=== PATIENT | male | born 1965 | race Two or more races ===

== ENCOUNTER 2017-10-27 18:15 | Emergency (ER) | payer SELFPAY ==
[~2017-10-27] VITALS: Ht 177.8 cm; Wt 72.6 kg
[~2017-10-27 18:15] MED LIST: (None)20 M1 PO; ALBU90OI INH; ERYT250 PO; Prednisone20 MG PO
[2017-10-27] MEDS ORDERED: Prednisone20 MG PO (20:45)
[2017-10-27] MEDS ORDERED: Zithromax250 MG PO (20:45)
[2017-10-27] MEDS ORDERED: Flovent 110 MCG12 GM INH (20:45)
== END 2017-10-27 21:15 | disposition home or self-care (01) ==
LOC: ER 18:15
DX: J44.1 Chronic obstructive pulmonary disease with (acute) exacerbation (principal); Z88.2 Allergy status to sulfonamides; Z88.6 Allergy status to analgesic agent; Z87.891 Personal history of nicotine dependence
CPT/HCPCS: 71046; 99284

== ENCOUNTER 2018-09-28 13:36 | Emergency (ER) | payer SELFPAY ==
[~2018-09-28] VITALS: Ht 177.8 cm; Wt 68.0 kg
[~2018-09-28 13:36] MED LIST changes: +Flovent 110 MCG12 GM INH; +Zithromax250 MG PO
[2018-09-28] MEDS ORDERED: AMOX250 (14:32)
[2018-09-28 15:32] LABS: BASOPHILS ABSOLUTE AUTO 0.04 K/mm3 (0.00-0.23); BASOPHILS PERCENT AUTO 1 % (0-2); EOSINOPHILS ABSOLUTE AUTO 0.68 K/mm3 (0.00-0.68); EOSINOPHILS PERCENT AUTO 8 % (0-6); Hematocrit 50.3 % (37.0-53.0); Hemoglobin 17.5 g/dL (13.5-17.5); IMMATURE GRAN ABSOLUTE AUTO 0.02 K/mm3 (0.00-0.10); IMMATURE GRAN PERCENT AUTO 0 % (0-1); LYMPHOCYTES ABSOLUTE AUTO 1.84 K/mm3 (0.84-5.20); LYMPHOCYTES PERCENT AUTO 23 % (21-46); MONOCYTES ABSOLUTE AUTO 0.54 K/mm3 (0.16-1.47); MONOCYTES PERCENT AUTO 7 % (4-13); Mean Corpuscular HGB 31.4 pg (26.0-34.0); Mean Corpuscular HGB Conc 34.8 g/dL (31.5-36.5); Mean Corpuscular Volume 90 fL (80-100); Mean Platelet Volume 9.4 fL (9.1-12.4); NEUTROPHILS ABSOLUTE AUTO 5.03 K/mm3 (1.96-9.15); NEUTROPHILS PERCENT AUTO 62 % (41-73); Platelet Count 280 K/mm3 (150-400); RDW Coefficient Variation 12.7 % (11.7-14.2); Red Blood Cell Count 5.57 M/mm3 (4.30-5.90); White Blood Cell Count 8.15 K/mm3 (4.00-11.30)
[2018-09-28 15:38] LABS: Alanine Aminotransfer (ALT/SGP 21 U/L (12-78); Albumin/Globulin Ratio 1.1 (0.8-1.8); Alk Phos 100 U/L (50-136); Anion Gap 8 mmol/L (6-16); Aspartate Aminotrans (AST/SGOT 16 U/L (12-37); Bilirubin, Total 0.6 mg/dL (0.1-1.0); Blood Urea Nitrogen 11 mg/dL (8-24); Bun/Creatinine Ratio 13.6 (12.0-20.0); CO2, Blood 27 mmol/L (21-32); Chloride, Blood 108 mmol/L (98-108); Creatinine, Blood 0.81 mg/dL (0.60-1.20); Globulin, Blood 3.5 g/dL (2.2-4.0); Glomerular Filtration Rate >60 (60-); Glucose, Blood 107 mg/dL (70-99); Potassium, Blood 3.8 mmol/L (3.5-5.5); Sodium, Blood 143 mmol/L (136-145); Total Protein, Blood 7.5 g/dL (6.4-8.2)
[2018-09-28] MEDS ORDERED: PRED20 PO (15:38)
[2018-09-28] MEDS ORDERED: MONT10T PO (16:10)
[2018-09-28] MEDS ORDERED: ALBU90OI INH (16:10)
[2018-09-28] MEDS ORDERED: Zithromax250 MG PO (16:28)
== END 2018-09-28 16:25 | disposition home or self-care (01) ==
LOC: ER 13:36
PROVIDERS: Physician Assistant
DX: J44.1 Chronic obstructive pulmonary disease with (acute) exacerbation (principal); Z88.2 Allergy status to sulfonamides; Z88.8 Allergy status to other drugs, medicaments and biological substances; I10 Essential (primary) hypertension; F17.210 Nicotine dependence, cigarettes, uncomplicated
CPT/HCPCS: 36415; 71046; 80053; 85025; 96374; 99284-25; J2930

== ENCOUNTER 2018-09-28 21:47 | Inpatient (IN) | payer SELFPAY ==
[~2018-09-28] VITALS: Ht 198.1 cm; Wt 127.0 kg
[~2018-09-28 21:47] MED LIST changes: +AMOX250; +MONT10T PO; +PRED20 PO
[2018-09-29 06:04] LABS: Hematocrit 45.1 % (37.0-53.0); Hemoglobin 15.9 g/dL (13.5-17.5); Mean Corpuscular HGB 31.8 pg (26.0-34.0); Mean Corpuscular HGB Conc 35.3 g/dL (31.5-36.5); Mean Corpuscular Volume 90 fL (80-100); Mean Platelet Volume 9.5 fL (9.1-12.4); Platelet Count 273 K/mm3 (150-400); RDW Standard Deviation 42.5 fL (35.1-46.3); White Blood Cell Count 13.36 K/mm3 (4.00-11.30)
[2018-09-29 06:37] LABS: Alanine Aminotransfer (ALT/SGP 18 U/L (12-78); Albumin, Blood 3.7 g/dL (3.4-5.0); Albumin/Globulin Ratio 1.1 (0.8-1.8); Alk Phos 93 U/L (50-136); Anion Gap 10 mmol/L (6-16); Aspartate Aminotrans (AST/SGOT 12 U/L (12-37); Bilirubin, Total 0.5 mg/dL (0.1-1.0); Blood Urea Nitrogen 15 mg/dL (8-24); Bun/Creatinine Ratio 16.9 (12.0-20.0); CO2, Blood 23 mmol/L (21-32); Chloride, Blood 108 mmol/L (98-108); Creatinine, Blood 0.89 mg/dL (0.60-1.20); Globulin, Blood 3.4 g/dL (2.2-4.0); Glomerular Filtration Rate >60 (60-); Glucose, Blood 161 mg/dL (70-99); Potassium, Blood 3.5 mmol/L (3.5-5.5); Sodium, Blood 141 mmol/L (136-145); Total Protein, Blood 7.1 g/dL (6.4-8.2)
--- NOTE | 2018-09-29 08:55 | NUR ---
ADMIT TO 210, VISIBLY DYSPEIC WITH EXERTION. SATS MAINTAIN ABOVE 92% PATIENT WITH HX OF UNTREATED HTN. DISCUSSED NEED TO FOLLOW UP AND FOLLOW THROUGH WITH PRESCRIBED TREATMENTS.
[2018-09-29 12:03] LABS: Adenovirus Not Detected (NOT DETECT); Bordetella pertussis Not Detected (NOT DETECT); Chlamydophila pneumoniae Not Detected (NOT DETECT); Coronavirus 229E Not Detected (NOT DETECT); Coronavirus HKU1 Not Detected (NOT DETECT); Coronavirus NL63 Not Detected (NOT DETECT); Coronavirus OC43 Not Detected (NOT DETECT); Human Metapneumovirus Not Detected (NOT DETECT); Human Rhinovirus/Enterovirus Not Detected (NOT DETECT); Influenza A Not Detected (NOT DETECT); Influenza A/2009-H1 Not Detected (NOT DETECT); Influenza A/H1 Not Detected (NOT DETECT); Influenza A/H3 Not Detected (NOT DETECT); Influenza B Not Detected (NOT DETECT); Mycoplasma pneumoniae Not Detected (NOT DETECT); Parainfluenza Virus 1 Not Detected (NOT DETECT); Parainfluenza Virus 2 Not Detected (NOT DETECT); Parainfluenza Virus 3 Not Detected (NOT DETECT); Parainfluenza Virus 4 Not Detected (NOT DETECT); Respiratory Syncytial Virus Not Detected (NOT DETECT)
--- NOTE | 2018-09-29 12:50 | NUR ---
CARE TRANSFERRED TO CAPRICE ALLEN RN
--- NOTE | 2018-09-29 18:30 | NUR ---
SHIFT SUMMARY PT HAS DONE WELL TODAY. LUNGS CONTINUE TO BE COURSE WITH NONPRODUCTIVE COUGH. PT STATES CHEST CONGESTION IS UNCHANGED.
--- NOTE | 2018-09-29 19:52 | NUR ---
TELE OFF BRIEFLY FOR SHOWER
--- NOTE | 2018-09-30 05:58 | NUR ---
SHIFT SUMMARY PT ADMITTED FOR ACUTE EXACERBATION OF REACTIVE AIRWAY DISEASE. HE HAD EXPIRATORY AND INSPIRATORY WHEEZES T/O THE NIGHT, BREATHING TX PER RT. TELE WAS SINUS TACH T/O THE NIGHT, RAN 100-110 THE MAJORITY OF THE NIGHT WITH A SPIKE UP IN THE 130S-150S WHILE PT HAD SOME RESPIRATORY DISTRESS AROUND 0300 WHERE O2 SATS DIPPED TO 86% AND CAME BACK UP TO 90-91% AND WHICH RESOLVED WITH A BREATHING TX AND REQUIRED NO SUPPLEMENTAL O2. PT IS A&O, INDEP IN THE ROOM. WILL CTM UNTIL PASS TO NEXT SHIFT.
--- NOTE | 2018-09-30 11:47 | NUR ---
Met pt. sitting up on his bed and relaxed, he reports of little imporvement, encouraged pt. and offered some prayers.
--- NOTE | 2018-09-30 12:15 | NUR ---
PT PERMISSION PATIENT GAVE PERMISSION FOR JAYLA MENA TO PROVIDE CARE ON [phone] ON 10/01/18.
[2018-09-30 13:36] LABS: Magnesium, Blood 2.2 mg/dL (1.6-2.4)
[2018-09-30 13:38] LABS: Thyroid Stimulating Hormone 0.629 uIU/mL (0.360-4.800)
--- NOTE | 2018-09-30 17:28 | NUR ---
SHIFT SUMMARY PT HAS DONE WELL TODAY BUT UNABLE TO HAVE PRODUCTIVE COUGH TO COLLECT SPUTUM. UP MOVING AROUND IN ROOM WITH IMPROVEMENT OF BREATHING.
--- NOTE | 2018-10-01 04:17 | NUR ---
CONTINUES TO IMPROVE, ABLE TO AMBULATE IN ROOM WITHOUT SOB ON ROOM AIR. DENIES PAIN, DISCOMFORT, OR FURTHER NEEDS AT THIS TIME. SAFETY MEASURES IN PLACE. WILL GIVE HAND OFF TO ONCOMING SHIFT USING SBAR DURING BEDSIDE REPORT.
[2018-10-01 05:13] LABS: BASOPHILS ABSOLUTE AUTO 0.03 K/mm3 (0.00-0.23); BASOPHILS PERCENT AUTO 0 % (0-2); EOSINOPHILS PERCENT AUTO 0 % (0-6); Hematocrit 42.1 % (37.0-53.0); Hemoglobin 14.2 g/dL (13.5-17.5); IMMATURE GRAN ABSOLUTE AUTO 0.22 K/mm3 (0.00-0.10); IMMATURE GRAN PERCENT AUTO 1 % (0-1); LYMPHOCYTES ABSOLUTE AUTO 0.85 K/mm3 (0.84-5.20); LYMPHOCYTES PERCENT AUTO 5 % (21-46); MONOCYTES ABSOLUTE AUTO 0.48 K/mm3 (0.16-1.47); MONOCYTES PERCENT AUTO 3 % (4-13); Mean Corpuscular HGB Conc 33.7 g/dL (31.5-36.5); Mean Corpuscular Volume 95 fL (80-100); Mean Platelet Volume 9.4 fL (9.1-12.4); NEUTROPHILS ABSOLUTE AUTO 14.74 K/mm3 (1.96-9.15); NEUTROPHILS PERCENT AUTO 90 % (41-73); Platelet Count 235 K/mm3 (150-400); RDW Coefficient Variation 13.2 % (11.7-14.2); RDW Standard Deviation 46.4 fL (35.1-46.3); Red Blood Cell Count 4.44 M/mm3 (4.30-5.90); White Blood Cell Count 16.32 K/mm3 (4.00-11.30)
[2018-10-01 05:50] LABS: Alanine Aminotransfer (ALT/SGP 22 U/L (12-78); Albumin, Blood 3.4 g/dL (3.4-5.0); Albumin/Globulin Ratio 1.1 (0.8-1.8); Alk Phos 66 U/L (50-136); Anion Gap 6 mmol/L (6-16); Aspartate Aminotrans (AST/SGOT 10 U/L (12-37); Bilirubin, Total 0.3 mg/dL (0.1-1.0); Blood Urea Nitrogen 13 mg/dL (8-24); Bun/Creatinine Ratio 18.1 (12.0-20.0); CO2, Blood 30 mmol/L (21-32); Calcium, Blood 8.5 mg/dL (8.5-10.1); Chloride, Blood 106 mmol/L (98-108); Creatinine, Blood 0.72 mg/dL (0.60-1.20); Globulin, Blood 3.1 g/dL (2.2-4.0); Glomerular Filtration Rate >60 (60-); Glucose, Blood 148 mg/dL (70-99); Potassium, Blood 4.1 mmol/L (3.5-5.5); Sodium, Blood 142 mmol/L (136-145); Total Protein, Blood 6.5 g/dL (6.4-8.2)
--- NOTE | 2018-10-01 13:24 | NUR ---
Patient gave student permission on 09/30/18 to participate in care on the day of 10/01/18.
--- NOTE | 2018-10-01 14:02 | NUR ---
Met pt in bed resting and watching the T.V. pt. reports doing much better encouragedn and offered prayer,
[2018-10-02 04:27] LABS: BASOPHILS ABSOLUTE AUTO 0.04 K/mm3 (0.00-0.23); BASOPHILS PERCENT AUTO 0 % (0-2); EOSINOPHILS ABSOLUTE AUTO 0.13 K/mm3 (0.00-0.68); EOSINOPHILS PERCENT AUTO 1 % (0-6); Hematocrit 42.1 % (37.0-53.0); Hemoglobin 14.3 g/dL (13.5-17.5); IMMATURE GRAN ABSOLUTE AUTO 0.28 K/mm3 (0.00-0.10); IMMATURE GRAN PERCENT AUTO 2 % (0-1); LYMPHOCYTES ABSOLUTE AUTO 2.42 K/mm3 (0.84-5.20); LYMPHOCYTES PERCENT AUTO 19 % (21-46); MONOCYTES ABSOLUTE AUTO 0.91 K/mm3 (0.16-1.47); MONOCYTES PERCENT AUTO 7 % (4-13); Mean Corpuscular HGB 31.8 pg (26.0-34.0); Mean Corpuscular Volume 94 fL (80-100); Mean Platelet Volume 9.4 fL (9.1-12.4); NEUTROPHILS ABSOLUTE AUTO 9.28 K/mm3 (1.96-9.15); NEUTROPHILS PERCENT AUTO 71 % (41-73); NRBC ABSOLUTE 0.04 K/mm3 (0.00-0.02); NRBC Auto 0.3 /100 WBC (0.0-0.2); Platelet Count 215 K/mm3 (150-400); RDW Coefficient Variation 13.2 % (11.7-14.2); RDW Standard Deviation 45.1 fL (35.1-46.3); Red Blood Cell Count 4.49 M/mm3 (4.30-5.90); White Blood Cell Count 13.06 K/mm3 (4.00-11.30)
[2018-10-02 04:46] LABS: Alanine Aminotransfer (ALT/SGP 25 U/L (12-78); Albumin, Blood 3.2 g/dL (3.4-5.0); Albumin/Globulin Ratio 1.2 (0.8-1.8); Alk Phos 75 U/L (50-136); Anion Gap 4 mmol/L (6-16); Aspartate Aminotrans (AST/SGOT 18 U/L (12-37); Bilirubin, Total 0.5 mg/dL (0.1-1.0); Blood Urea Nitrogen 15 mg/dL (8-24); Bun/Creatinine Ratio 17.2 (12.0-20.0); CO2, Blood 32 mmol/L (21-32); Calcium, Blood 8.1 mg/dL (8.5-10.1); Chloride, Blood 106 mmol/L (98-108); Creatinine, Blood 0.87 mg/dL (0.60-1.20); Globulin, Blood 2.7 g/dL (2.2-4.0); Glomerular Filtration Rate >60 (60-); Glucose, Blood 91 mg/dL (70-99); Potassium, Blood 3.6 mmol/L (3.5-5.5); Sodium, Blood 142 mmol/L (136-145); Total Protein, Blood 5.9 g/dL (6.4-8.2)
--- NOTE | 2018-10-02 05:47 | NUR ---
MAINTAINING CURRENT STATUS, ABLE TO AMBULATE IN ROOM WITHOUT SOB ON ROOM AIR. HAS HAD INCREASED WHEEZING AND MUCUS PRODUCTION, REQUIRED AN PRN BREATHING TREATMENT. SOME TEACHING COMPLETED WITH EMPHASEMA DISEASE PROCESS, VOICES UNDERSTANDING. DENIES PAIN, DISCOMFORT, OR FURTHER NEEDS AT THIS TIME. SAFETY MEASURES IN PLACE. WILL GIVE HAND OFF TO ONCOMING SHIFT USING SBAR DURING BEDSIDE REPORT.
--- NOTE | 2018-10-02 09:55 | NUR ---
DR MANCINI HERE TO SEE PT. DISCUSSED LS WITH
[2018-10-02 12:07] LABS: QUANTIFERON MITOGEN VALUE 1.28 IU/mL (.); QUANTIFERON NIL VALUE 0.02 IU/mL (.); QUANTIFERON TB1 AG VALUE 0.69 IU/mL (.); QUANTIFERON TB2 AG VALUE 1.26 IU/mL (.); QUANTIFERON-TB GOLD PLUS Positive (Negative)
--- NOTE | 2018-10-02 13:18 | NUR ---
Met pt sitting up on his bed , efrain porter doing much better encouraged pt. and offered prayers.
--- NOTE | 2018-10-02 18:01 | NUR ---
SHIFT SUMMARY PT EATING AND DRINKING. PT BEEN ASSISTED WITH ADL'S PRN. PT UP IND TO BATHROOM WITH STEADY GAIT. PT REPORTS VOIDING AND HAVING RECENT BM. PT REPORTS BREATHING BETTER THAN PREVIOUSLY.
--- NOTE | 2018-10-03 03:56 | NUR ---
NO FURTHER CHANGES IN STATUS, ABLE TO AMBULATE IN ROOM WITHOUT SOB ON ROOM AIR. WHEEZING AND INCREASED MUCUS PRODUCTION CONTINUE. DENIES PAIN, DISCOMFORT, OR FURTHER NEEDS AT THIS TIME. EXCITED ABOUT POSS D/C IN AM. STATES THAT HE IS SUPPOSED TO GO HOME WITH A NEBULIZER SO HE CAN RECEIVE BREATHING TREATMENTS THERE TOO. INCREASE IN APPETITE REPORTED, PLENTY OF SNACKS PROVIDED FOR HIM AND HIS DAUGHTER AT BEDSIDE. SAFETY MEASURES IN PLACE. WILL GIVE HAND OFF TO ONCOMING SHIFT USING SBAR DURING BEDSIDE REPORT.
[2018-10-03 04:38] LABS: BASOPHILS ABSOLUTE AUTO 0.06 K/mm3 (0.00-0.23); BASOPHILS PERCENT AUTO 1 % (0-2); EOSINOPHILS ABSOLUTE AUTO 0.58 K/mm3 (0.00-0.68); EOSINOPHILS PERCENT AUTO 6 % (0-6); Hematocrit 45.4 % (37.0-53.0); IMMATURE GRAN ABSOLUTE AUTO 0.33 K/mm3 (0.00-0.10); IMMATURE GRAN PERCENT AUTO 4 % (0-1); LYMPHOCYTES ABSOLUTE AUTO 1.65 K/mm3 (0.84-5.20); LYMPHOCYTES PERCENT AUTO 18 % (21-46); MONOCYTES ABSOLUTE AUTO 0.61 K/mm3 (0.16-1.47); MONOCYTES PERCENT AUTO 7 % (4-13); Mean Corpuscular HGB 31.3 pg (26.0-34.0); Mean Corpuscular Volume 95 fL (80-100); Mean Platelet Volume 9.2 fL (9.1-12.4); NEUTROPHILS ABSOLUTE AUTO 5.88 K/mm3 (1.96-9.15); NEUTROPHILS PERCENT AUTO 65 % (41-73); NRBC ABSOLUTE 0.04 K/mm3 (0.00-0.02); NRBC Auto 0.4 /100 WBC (0.0-0.2); Platelet Count 194 K/mm3 (150-400); RDW Coefficient Variation 12.8 % (11.7-14.2); White Blood Cell Count 9.11 K/mm3 (4.00-11.30)
[2018-10-03 04:52] LABS: Anion Gap 6 mmol/L (6-16); Blood Urea Nitrogen 13 mg/dL (8-24); Bun/Creatinine Ratio 13.5 (12.0-20.0); CO2, Blood 30 mmol/L (21-32); Calcium, Blood 8.2 mg/dL (8.5-10.1); Chloride, Blood 105 mmol/L (98-108); Creatinine, Blood 0.96 mg/dL (0.60-1.20); Glomerular Filtration Rate >60 (60-); Glucose, Blood 95 mg/dL (70-99); Potassium, Blood 3.7 mmol/L (3.5-5.5); Sodium, Blood 141 mmol/L (136-145)
--- NOTE | 2018-10-03 11:11 | NUR ---
PT MOVED TO ROOM [address] ORDER. PT WORE MASK DURING TRANSPORT.
--- NOTE | 2018-10-03 11:32 | NUR ---
met along the hallway , he reports doing well encourageds him and wished him all the best.
--- NOTE | 2018-10-03 14:38 | NUR ---
DR SALAS NOTIFIED OF LAB STATING TO HAVE SPUTUM EACH AM FOR [address] REPORTED TALKING TO INFECTION CONTROL AND THAT THEY STATED THEY COULD ALL BE DONE ON THE SAME DAY. LAB NOTIFIED.
--- NOTE | 2018-10-03 17:59 | NUR ---
SHIFT SUMMARY PT EATING AND DRINKING, VOIDING. PT BEEN ASSISTED WITH ADL'S PRN. PT IN AIRBONRE PRECAUTIONS. PT IND IN ROOM.
--- NOTE | 2018-10-04 05:33 | NUR ---
SUMMARY PT IN NO DISTRESS TONIGHT. REPORTS BREATHING EASIER EXCEPT NOW NOTES NASAL CONGESTION SINCE TRANSFERRED TO RM 230 FOR NEGATIVE PRESSURE ISOLATION R/T POSSIBLE TB EXPOSURE.SLEPT QUIETLY.
--- NOTE | 2018-10-04 18:31 | NUR ---
SUMMARY NO ACUTE CHANGES T/O SHIFT. PT INDEPENDENT IN ROOM. BREATHING LOOKS LESS LABORED THIS EVENING COMPARED TO MORNING ASSESSMENT. ON RA, VSS. PLEASANT AND COOPERATIVE. CALL LIGHT IN REACH.
[2018-10-05 04:44] LABS: BASOPHILS ABSOLUTE AUTO 0.05 K/mm3 (0.00-0.23); BASOPHILS PERCENT AUTO 1 % (0-2); EOSINOPHILS ABSOLUTE AUTO 0.45 K/mm3 (0.00-0.68); EOSINOPHILS PERCENT AUTO 5 % (0-6); Hematocrit 46.5 % (37.0-53.0); Hemoglobin 15.9 g/dL (13.5-17.5); IMMATURE GRAN ABSOLUTE AUTO 0.29 K/mm3 (0.00-0.10); IMMATURE GRAN PERCENT AUTO 3 % (0-1); LYMPHOCYTES ABSOLUTE AUTO 1.38 K/mm3 (0.84-5.20); LYMPHOCYTES PERCENT AUTO 14 % (21-46); MONOCYTES ABSOLUTE AUTO 0.74 K/mm3 (0.16-1.47); MONOCYTES PERCENT AUTO 8 % (4-13); Mean Corpuscular HGB 31.9 pg (26.0-34.0); Mean Corpuscular HGB Conc 34.2 g/dL (31.5-36.5); Mean Corpuscular Volume 93 fL (80-100); Mean Platelet Volume 9.3 fL (9.1-12.4); NEUTROPHILS ABSOLUTE AUTO 6.72 K/mm3 (1.96-9.15); NEUTROPHILS PERCENT AUTO 70 % (41-73); Platelet Count 191 K/mm3 (150-400); RDW Coefficient Variation 12.7 % (11.7-14.2); RDW Standard Deviation 43.8 fL (35.1-46.3); Red Blood Cell Count 4.98 M/mm3 (4.30-5.90); White Blood Cell Count 9.63 K/mm3 (4.00-11.30)
[2018-10-05 05:05] LABS: Anion Gap 8 mmol/L (6-16); Blood Urea Nitrogen 14 mg/dL (8-24); Bun/Creatinine Ratio 14.7 (12.0-20.0); CO2, Blood 26 mmol/L (21-32); Calcium, Blood 7.9 mg/dL (8.5-10.1); Chloride, Blood 105 mmol/L (98-108); Creatinine, Blood 0.96 mg/dL (0.60-1.20); Glomerular Filtration Rate >60 (60-); Glucose, Blood 104 mg/dL (70-99); Potassium, Blood 3.4 mmol/L (3.5-5.5); Sodium, Blood 139 mmol/L (136-145)
--- NOTE | 2018-10-05 05:59 | NUR ---
SUMMARY NO ACUTE CHANGES TONIGHT. CONTINUES TO REPORT BREATHING HAS IMPROVED.REMAINS ON R/A.
--- NOTE | 2018-10-05 09:02 | NUR ---
DR SALAS IN TO SEE PT.
[2018-10-05] MEDS ORDERED: AZIT250 PO (10:08)
[2018-10-05] MEDS ORDERED: PRED10 PO (10:10)
[2018-10-05] MEDS ORDERED: METO25 PO (10:11)
[2018-10-05] MEDS ORDERED: DULERA 200 MCG/13 GM INH (10:12)
[2018-10-05] MEDS ORDERED: Flonase 0.05% N16 GM (10:13)
[2018-10-05] MEDS ORDERED: GUAI600T33 PO (10:13)
[2018-10-05] MEDS ORDERED: MAGOXI400 PO (10:14)
--- NOTE | 2018-10-05 14:14 | NUR ---
PT FEELING WEAK. VSS. BREATHING TX ADMINISTERED FOR SLIGHT SOB. DISCUSSED W/PT IMPORTANCE OF LISTENING TO BODY AND NOT OVERDOING ACTIVITY. PT HAD WALKED OUTSIDE, CLIMBED STAIRS AND PACKED UP BELONGINGS THEN BEGAN TO FEEL WEAK AND "FUNNY." STATES READY TO GO HOME WHEN RIDE ARRIVES. EDUCATED ON DC, VERBALIZED UNDERSTANDING OF DC INSTRUCTIONS. DC'D IV, CATHETER INTACT.
--- NOTE | 2018-10-05 15:02 | NUR ---
PT STATES FEELING BETTER. LEFT UNIT IN WC ACCOMPANIED BY FAMILY MEMBER W/POSSESSIONS AND DC PAPERWORK IN HAND.
== END 2018-10-05 14:55 | disposition home or self-care (01) | DRG 203 ==
LOC: ER 21:47 → ERHOLD 09-29 03:38 → SURS 09-29 08:27
PROVIDERS: Hospitalist; Internal Medicine; ADMIT Internal Medicine
PROC: 3E0234Z Introduction of Serum, Toxoid and Vaccine into Muscle, Percutaneous Approach (ICD-10-PCS; principal; 2018-09-29)
DX: J45.901 Unspecified asthma with (acute) exacerbation (principal); I10 Essential (primary) hypertension; R76.12 Nonspecific reaction to cell mediated immunity measurement of gamma interferon antigen response without active tuberculosis; Z87.891 Personal history of nicotine dependence; Z88.2 Allergy status to sulfonamides; Z88.8 Allergy status to other drugs, medicaments and biological substances; Z91.010 Allergy to peanuts; Z23 Encounter for immunization
CPT/HCPCS: 36415; 71260; 80048; 80053; 83735; 84443; 84484; 85025; 85027; 85651; 86480; 87070; 87205; 87486; 87581; 87633; 87798; 90686; 93005; 93010; 94640; 94644; 94760; 96374; 99285-25; J0456; J1650; J2405; J2930; J7050; Q9967

== ENCOUNTER 2019-08-04 01:04 | Emergency (ER) | payer OTHER ==
[~2019-08-04] VITALS: Ht 172.7 cm; Wt 72.6 kg
[~2019-08-04 01:04] MED LIST changes: +AZIT250 PO; +DULERA 200 MCG/13 GM INH; +Flonase 0.05% N16 GM; +GUAI600T33 PO; +MAGOXI400 PO; +METO25 PO; +PRED10 PO
[2019-08-04 02:02] LABS: BASOPHILS ABSOLUTE AUTO 0.05 K/mm3 (0.00-0.23); BASOPHILS PERCENT AUTO 1 % (0-2); EOSINOPHILS ABSOLUTE AUTO 1.14 K/mm3 (0.00-0.68); EOSINOPHILS PERCENT AUTO 11 % (0-6); Hemoglobin 16.9 g/dL (13.5-17.5); IMMATURE GRAN ABSOLUTE AUTO 0.08 K/mm3 (0.00-0.10); IMMATURE GRAN PERCENT AUTO 1 % (0-1); LYMPHOCYTES ABSOLUTE AUTO 2.18 K/mm3 (0.84-5.20); LYMPHOCYTES PERCENT AUTO 21 % (21-46); MONOCYTES ABSOLUTE AUTO 0.56 K/mm3 (0.16-1.47); MONOCYTES PERCENT AUTO 6 % (4-13); Mean Corpuscular HGB 30.8 pg (26.0-34.0); Mean Corpuscular HGB Conc 33.8 g/dL (31.5-36.5); Mean Corpuscular Volume 91 fL (80-100); Mean Platelet Volume 9.2 fL (9.1-12.4); NEUTROPHILS ABSOLUTE AUTO 6.23 K/mm3 (1.96-9.15); NEUTROPHILS PERCENT AUTO 61 % (41-73); Platelet Count 290 K/mm3 (150-400); RDW Coefficient Variation 13.2 % (11.7-14.2); RDW Standard Deviation 43.8 fL (35.1-46.3); Red Blood Cell Count 5.49 M/mm3 (4.30-5.90); White Blood Cell Count 10.24 K/mm3 (4.00-11.30)
[2019-08-04 02:15] LABS: Alanine Aminotransfer (ALT/SGP 33 U/L (12-78); Albumin/Globulin Ratio 1.1 (0.8-1.8); Alk Phos 117 U/L (50-136); Anion Gap 6 mmol/L (6-16); Aspartate Aminotrans (AST/SGOT 15 U/L (12-37); Bilirubin, Total 0.4 mg/dL (0.1-1.0); Blood Urea Nitrogen 16 mg/dL (8-24); Bun/Creatinine Ratio 15.4 (12.0-20.0); CO2, Blood 28 mmol/L (21-32); Calcium, Blood 8.8 mg/dL (8.5-10.1); Chloride, Blood 109 mmol/L (98-108); Creatinine, Blood 1.04 mg/dL (0.60-1.20); Globulin, Blood 3.6 g/dL (2.2-4.0); Glomerular Filtration Rate >60 (60-); Glucose, Blood 118 mg/dL (70-99); Potassium, Blood 3.9 mmol/L (3.5-5.5); Sodium, Blood 143 mmol/L (136-145); Total Protein, Blood 7.6 g/dL (6.4-8.2)
[2019-08-04] MEDS ORDERED: Prednisone20 MG PO (03:48)
== END 2019-08-04 04:46 | disposition home or self-care (01) ==
LOC: ER 01:04
PROVIDERS: Emergency Medicine
DX: R06.02 Shortness of breath (principal); I10 Essential (primary) hypertension; J44.9 Chronic obstructive pulmonary disease, unspecified; Z88.2 Allergy status to sulfonamides; Z88.6 Allergy status to analgesic agent; Z91.010 Allergy to peanuts; Z79.899 Other long term (current) drug therapy; Z79.52 Long term (current) use of systemic steroids
CPT/HCPCS: 36415; 71046; 80053; 85025; 93005; 93010; 94640; 99284-25; J7512

== ENCOUNTER 2019-08-31 14:33 | Emergency (ER) | payer OTHER ==
[~2019-08-31] VITALS: Ht 175.3 cm; Wt 72.6 kg
[2019-08-31 15:08] LABS: BASOPHILS ABSOLUTE AUTO 0.03 K/mm3 (0.00-0.23); BASOPHILS PERCENT AUTO 0 % (0-2); EOSINOPHILS ABSOLUTE AUTO 0.82 K/mm3 (0.00-0.68); EOSINOPHILS PERCENT AUTO 12 % (0-6); Hematocrit 47.2 % (37.0-53.0); Hemoglobin 16.3 g/dL (13.5-17.5); IMMATURE GRAN ABSOLUTE AUTO 0.03 K/mm3 (0.00-0.10); IMMATURE GRAN PERCENT AUTO 0 % (0-1); LYMPHOCYTES ABSOLUTE AUTO 2.12 K/mm3 (0.84-5.20); LYMPHOCYTES PERCENT AUTO 32 % (21-46); MONOCYTES ABSOLUTE AUTO 0.52 K/mm3 (0.16-1.47); MONOCYTES PERCENT AUTO 8 % (4-13); Mean Corpuscular HGB 30.9 pg (26.0-34.0); Mean Corpuscular HGB Conc 34.5 g/dL (31.5-36.5); Mean Corpuscular Volume 89 fL (80-100); Mean Platelet Volume 9.3 fL (9.1-12.4); NEUTROPHILS ABSOLUTE AUTO 3.16 K/mm3 (1.96-9.15); NEUTROPHILS PERCENT AUTO 47 % (41-73); Platelet Count 287 K/mm3 (150-400); RDW Coefficient Variation 13.2 % (11.7-14.2); RDW Standard Deviation 43.1 fL (35.1-46.3); Red Blood Cell Count 5.28 M/mm3 (4.30-5.90); White Blood Cell Count 6.68 K/mm3 (4.00-11.30)
[2019-08-31 15:26] LABS: Alanine Aminotransfer (ALT/SGP 44 U/L (12-78); Albumin, Blood 3.8 g/dL (3.4-5.0); Albumin/Globulin Ratio 1.1 (0.8-1.8); Alk Phos 115 U/L (50-136); Anion Gap 7 mmol/L (6-16); Aspartate Aminotrans (AST/SGOT 22 U/L (12-37); Bilirubin, Total 0.5 mg/dL (0.1-1.0); Blood Urea Nitrogen 9 mg/dL (8-24); Bun/Creatinine Ratio 12.3 (12.0-20.0); CO2, Blood 25 mmol/L (21-32); Calcium, Blood 8.6 mg/dL (8.5-10.1); Chloride, Blood 110 mmol/L (98-108); Creatinine, Blood 0.73 mg/dL (0.60-1.20); Globulin, Blood 3.5 g/dL (2.2-4.0); Glomerular Filtration Rate >60 (60-); Glucose, Blood 113 mg/dL (70-99); Potassium, Blood 3.8 mmol/L (3.5-5.5); Sodium, Blood 142 mmol/L (136-145); Total Protein, Blood 7.3 g/dL (6.4-8.2)
[2019-08-31] MEDS ORDERED: DULERA 200 MCG/13 GM INH (17:55)
[2019-08-31] MEDS ORDERED: Prednisone20 MG PO (17:55)
== END 2019-08-31 18:07 | disposition home or self-care (01) ==
LOC: ER 14:33
PROVIDERS: Physician Assistant
DX: J44.1 Chronic obstructive pulmonary disease with (acute) exacerbation (principal); Z88.8 Allergy status to other drugs, medicaments and biological substances; Z88.2 Allergy status to sulfonamides; Z91.010 Allergy to peanuts; Z79.899 Other long term (current) drug therapy; I10 Essential (primary) hypertension; Z87.891 Personal history of nicotine dependence
CPT/HCPCS: 36415; 71046; 80053; 85025; 94640; 96374; 99283-25; J1100

== ENCOUNTER 2019-10-31 20:54 | Emergency (ER) | payer OTHER ==
[~2019-10-31] VITALS: Ht 175.3 cm; Wt 83.9 kg
[2019-10-31] MEDS ORDERED: DULERA 200 MCG/13 GM INH (21:58)
[2019-10-31] MEDS ORDERED: Prednisone20 MG PO (21:58)
== END 2019-10-31 22:09 | disposition home or self-care (01) ==
LOC: ER 20:54
DX: J44.1 Chronic obstructive pulmonary disease with (acute) exacerbation (principal); Z76.0 Encounter for issue of repeat prescription; I10 Essential (primary) hypertension; Z88.2 Allergy status to sulfonamides; Z88.6 Allergy status to analgesic agent; Z91.010 Allergy to peanuts; Z79.899 Other long term (current) drug therapy
CPT/HCPCS: 94640; 99283-25; J7512